=== PATIENT | male | born 1990 | race African-American/Black ===

== ENCOUNTER 2017-01-12 18:29 | Emergency (ER) | payer OTHER ==
[~2017-01-12] VITALS: Ht 175.3 cm; Wt 63.5 kg
[2017-01-12 18:30] VITALS: BP 117/67
[2017-01-12] MEDS ORDERED: ORAPRED15 MG/5 ML PO (19:31)
== END 2017-01-12 20:05 | disposition home or self-care (01) ==
LOC: ER 18:29
DX: M25.461 Effusion, right knee (principal)

== ENCOUNTER 2017-01-22 21:26 | Emergency (ER) | payer OTHER ==
[~2017-01-22] VITALS: Ht 175.3 cm; Wt 63.5 kg
[~2017-01-22 21:26] MED LIST: ORAPRED15 MG/5 ML PO
[2017-01-22 21:29] VITALS: BP 124/74
[2017-01-22] MEDS ORDERED: MOBIC7.5 MG PO (21:58)
== END 2017-01-22 22:21 | disposition home or self-care (01) ==
LOC: ER 21:26
DX: M25.561 Pain in right knee (principal); F17.210 Nicotine dependence, cigarettes, uncomplicated